=== PATIENT | male | born 1990 | race Two or more races ===

== ENCOUNTER 2017-10-02 02:46 | Emergency (ER) | payer MEDICAID ==
[~2017-10-02] VITALS: Ht 180.3 cm; Wt 66.0 kg
[2017-10-02 02:54] VITALS: BP 154/91
[2017-10-02] MEDS ORDERED: CLON0.5T PO (07:32)
== END 2017-10-02 06:11 | disposition left against medical advice (07) ==
LOC: ER 02:46
DX: Z53.21 Procedure and treatment not carried out due to patient leaving prior to being seen by health care provider (principal)

== ENCOUNTER 2017-10-02 07:19 | Emergency (ER) | payer MEDICAID ==
[~2017-10-02] VITALS: Ht 180.3 cm; Wt 65.0 kg
[2017-10-02] MEDS ORDERED: CLON0.5T PO (07:32)
[2017-10-02] MEDS ORDERED: CEPHALEXIN 500MG CAPSULE PO ONE (09:00)
[2017-10-02 09:25] VITALS: BP 147/82
== END 2017-10-02 10:24 | disposition home or self-care (01) ==
LOC: ER 09:43
DX: Z76.5 Malingerer [conscious simulation] (principal); F32.9 Major depressive disorder, single episode, unspecified; F12.10 Cannabis abuse, uncomplicated
CPT/HCPCS: 99282

== ENCOUNTER 2018-12-10 03:59 | Emergency (ER) | payer MEDICAID ==
[~2018-12-10] VITALS: Ht 167.6 cm; Wt 71.0 kg
[~2018-12-10 03:59] MED LIST: CLON0.5T PO
[2018-12-10 04:02] VITALS: BP 132/58
[2018-12-10] MEDS ORDERED: CHLORDIAZEPOXIDE 25MG CAPSULE PO ONE (06:30)
[2018-12-10] MEDS ORDERED: VENLAFAXINE HCL 75MG TABLET PO SCH (06:30)
== END 2018-12-10 08:01 | disposition home or self-care (01) ==
LOC: ER 03:59
DX: F41.9 Anxiety disorder, unspecified (principal); F32.9 Major depressive disorder, single episode, unspecified; Z88.8 Allergy status to other drugs, medicaments and biological substances
CPT/HCPCS: 99284